=== PATIENT | female | born 1990 | race Caucasian/White ===

== ENCOUNTER → 2018-06-20 | Outpatient (CLI) | payer BC ==
[~2018-06-20] MED LIST: ALDACTONE25 MG PO; BIRTH CONTROL; MEDROLDOSEPACK PO; ROBAXIN500 MG PO
== END ==
LOC: M.ULTRA 06-14 09:26
DX: K76.0 Fatty (change of) liver, not elsewhere classified (principal); E04.9 Nontoxic goiter, unspecified; M54.5 Low back pain

== ENCOUNTER → 2018-07-25 | Outpatient (CLI) | payer BC | LOC: M.NUC 07:45 | DX: R10.10 Upper abdominal pain, unspecified (principal) ==

== ENCOUNTER → 2020-02-12 | Outpatient (CLI) | payer BC | LOC: M.ULTRA 10:51 | DX: R22.2 Localized swelling, mass and lump, trunk (principal) ==

== ENCOUNTER → 2021-03-07 | Outpatient (CLI) | payer BC | LOC: M.CT 13:44 | PROVIDERS: ATTEND Nurse Practitioner Family | DX: G93.89 Other specified disorders of brain (principal) ==

== ENCOUNTER → 2021-05-13 | Outpatient (CLI) | payer BC ==
[~2021-05-13] MED LIST changes: +BACLOFEN 10MG T10 MG PO; +CARBAMAZEPINE100 M2 PO; +MOBIC7.5 MG PO; +NEURONTIN100 MG PO; +VITAMIN B-121000 MC2 SUBLING; +VITAMIN D3 PO
== END ==
LOC: M.PC 09:46
PROVIDERS: ATTEND Anesthesiology Pain Medicine
DX: G50.0 Trigeminal neuralgia (principal); K92.9 Disease of digestive system, unspecified; F41.9 Anxiety disorder, unspecified; Z88.8 Allergy status to other drugs, medicaments and biological substances; Z79.899 Other long term (current) drug therapy